=== PATIENT | female | born 1950 | race Caucasian/White ===

== ENCOUNTER 2019-05-03 09:30 | Outpatient (CLI) | payer MEDICARE | END 2019-05-03 23:59 | disposition home or self-care (01) | LOC: RAD 09:30 | DX: K21.9 Gastro-esophageal reflux disease without esophagitis (principal); Q40.3 Congenital malformation of stomach, unspecified; Z98.890 Other specified postprocedural states | CPT/HCPCS: 74240; 74248 ==

== ENCOUNTER 2020-05-17 15:57 | Emergency (ER) | payer MEDICARE ==
[~2020-05-17] VITALS: Ht 162.6 cm; Wt 69.5 kg
[2020-05-17 17:05] LABS: BASOPHILS % (AUTO) 0.3 % (0-1); EOSINOPHILS # (AUTO) 0.2 X10'3 (0-0.9); EOSINOPHILS % (AUTO) 2.9 % (0-6); HEMATOCRIT 39.2 % (35.0-45.0); HEMOGLOBIN 12.9 g/dl (12.0-16.0); LYMPHOCYTES % (AUTO) 24.6 % (21-51); MEAN CORPUSCULAR HEMOGLOBIN 30.5 PG (27.0-31.0); MEAN CORPUSCULAR HGB CONC 32.8 g/dL (33.0-36.5); MEAN PLATELET VOLUME 8.8 FL (7.4-10.4); MONOCYTES # (AUTO) 0.7 X10'3 (0-0.9); NEUTROPHILS % (AUTO) 63.2 % (42-75); PLATELET COUNT 243 X10'3 (140-440); RED BLOOD COUNT 4.22 X10'6 (4.20-5.60); RED CELL DISTRIBUTION WIDTH 13.6 % (11.5-14.5); WHITE BLOOD COUNT 7.9 X10'3 (4.5-11.0)
[2020-05-17 17:27] LABS: MAGNESIUM 1.8 MG/DL (1.5-2.4)
[2020-05-17] MEDS ORDERED: triamcinolone acetonide 40mg/ml inj IM ONE (17:55)
[2020-05-17] MEDS ORDERED: predniSONE 20 mg tablet PO ONE (18:00)
[2020-05-17] MEDS ORDERED: COLC0.6T72 PO (18:02)
[2020-05-17 18:13] VITALS: BP 147/102
== END 2020-05-17 18:18 | disposition home or self-care (01) ==
LOC: ER 15:57
DX: M10.9 Gout, unspecified (principal); G43.909 Migraine, unspecified, not intractable, without status migrainosus; J45.909 Unspecified asthma, uncomplicated; G89.29 Other chronic pain; Z90.710 Acquired absence of both cervix and uterus; Z98.890 Other specified postprocedural states; Z79.899 Other long term (current) drug therapy; Z88.2 Allergy status to sulfonamides; Z88.8 Allergy status to other drugs, medicaments and biological substances
CPT/HCPCS: 36415; 71045; 83735; 83880; 84484; 85025; 93005; 93971; 96372; 99285; J3301; J7512

== ENCOUNTER 2020-09-20 08:40 | Observation (INO) | payer MEDICARE ==
[~2020-09-20] VITALS: Ht 162.6 cm; Wt 73.6 kg
[~2020-09-20 08:40] MED LIST: COLC0.6T72 PO
[2020-09-20] MEDS ORDERED: morphine 10mg/ml inj. IM ONE (09:15)
--- NOTE | 2020-09-20 09:57 | NUR ---
informed the pharmacist [place] that pt is not allergic to morphine but allergic to dilaudid and dilaudid has component of morphine thats why its popping up that pt is allergic ,as per pharmacist if pt does not have alllergies to morphine its fine to admin the meds.
[2020-09-20] MEDS ORDERED: orphenadrine citrate 60mg/2ml inj. IM ONE (10:25)
--- NOTE | 2020-09-20 10:41 | NUR ---
notified dr contreras regarding pt pain level 6/10 after morphine ,pt unable to lift or move to get bed pain ,order for straight cath to drain urine.
[2020-09-20 10:54] LABS: CLARITY,URINE CLEAR (Clear); COLOR,URINE STRAW (Yellow); GLUCOSE, URINE NEGATIVE (Neg); KETONES,URINE NEGATIVE (Neg); LEUKOCYTE ESTERASE ,URINE NEGATIVE (Neg); NITRITES, URINE NEGATIVE (Neg); OCCULT BLOOD,URINE NEGATIVE (Neg); PROTEIN,URINE NEGATIVE (Neg); UROBILINOGEN,URINE 0.2 E.U/dL (0.2-1.0)
[2020-09-20 11:08] LABS: UA COLLECTION TYPE STRAIGHT CATH
[2020-09-20] MEDS ORDERED: ketorolac trometh. 30mg/ml inj. IM ONE (11:55)
[2020-09-20] MEDS ORDERED: HYDROcodone/acetaminophen 10/325mg tab PO ONE (11:55)
[2020-09-20] MEDS ORDERED: diazepam inj 5 MG/ML inj. IV ONE (12:40)
[2020-09-20] MEDS ORDERED: morphine 4 MG/ML inj SYRINge IV PRN (12:40)
[2020-09-20] MEDS ORDERED: GABA-530 PO (13:06)
[2020-09-20] MEDS ORDERED: PANT40TA54 PO (13:06)
[2020-09-20] MEDS ORDERED: MONT10TA32 PO (13:06)
[2020-09-20] MEDS ORDERED: ATOR10TA70 PO (13:06)
[2020-09-20] MEDS ORDERED: CYCL-1 PO (13:06)
--- NOTE | 2020-09-20 13:08 | NUR ---
dr box at bedside.
[2020-09-20] MEDS ORDERED: MULT-384 PO (13:26)
[2020-09-20] MEDS ORDERED: CHOL20004 PO (13:26)
[2020-09-20] MEDS ORDERED: INDO-12 PO (13:26)
[2020-09-20] MEDS ORDERED: BUTA-281 PO (13:26)
[2020-09-20] MEDS ORDERED: RIZA10TA98 PO (13:26)
[2020-09-20] MEDS ORDERED: CYAN-51 PO (13:26)
[2020-09-20] MEDS ORDERED: BIOT5000 PO (13:26)
[2020-09-20] MEDS ORDERED: BUPR100T7 PO (13:26)
[2020-09-20 13:32] LABS: BASOPHILS % (AUTO) 0.1 % (0-1); EOSINOPHILS # (AUTO) 0.1 X10'3 (0-0.9); EOSINOPHILS % (AUTO) 0.8 % (0-6); HEMATOCRIT 40.6 % (35.0-45.0); HEMOGLOBIN 13.5 g/dl (12.0-16.0); LYMPHOCYTES # (AUTO) 1.4 X10'3 (1.1-4.8); LYMPHOCYTES % (AUTO) 15.4 % (21-51); MEAN CORPUSCULAR HEMOGLOBIN 30.6 PG (27.0-31.0); MEAN CORPUSCULAR HGB CONC 33.3 g/dL (33.0-36.5); MEAN CORPUSCULAR VOLUME 91.9 FL (78-98); MEAN PLATELET VOLUME 8.7 FL (7.4-10.4); MONOCYTES # (AUTO) 0.8 X10'3 (0-0.9); MONOCYTES % (AUTO) 8.6 % (2-12); NEUTROPHILS # (AUTO) 6.8 X10'3 (1.8-7.7); NEUTROPHILS % (AUTO) 75.1 % (42-75); PLATELET COUNT 254 X10'3 (140-440); RED BLOOD COUNT 4.42 X10'6 (4.20-5.60); RED CELL DISTRIBUTION WIDTH 14.1 % (11.5-14.5)
[2020-09-20] MEDS ORDERED: potassium Cl 20 mEq SR tablet PO PRN ×2 (13:35)
[2020-09-20] MEDS ORDERED: bisacodyl 10mg suppository rectal RC PRN (13:35)
[2020-09-20] MEDS ORDERED: mag hydrox/Alum hydrox/simeth 30ml oral suspension PO PRN (13:35)
[2020-09-20] MEDS ORDERED: magnesium 2GM in 50ml NS 50 ML IV PRN (13:35)
[2020-09-20] MEDS ORDERED: morphine 2 MG/ML inj. syringe IV PRN (13:35)
[2020-09-20] MEDS ORDERED: ketorolac trometh. 30mg/ml inj. IV PRN (13:35)
[2020-09-20] MEDS ORDERED: acetaminophen 325mg tablet PO PRN ×2 (13:35)
[2020-09-20] MEDS ORDERED: magnesium hydroxide 30ml (MOM) UD suspension PO PRN (13:35)
[2020-09-20] MEDS ORDERED: magnesium Cl slow-release 64mg tablet PO PRN (13:35)
[2020-09-20] MEDS ORDERED: HYDROcodone/acetaminophen 10/325mg tab PO PRN (13:35)
[2020-09-20] MEDS ORDERED: potassium Cl 40MEQ/1/2NS 520ml 520 ML IV PRN ×2 (13:35)
[2020-09-20] MEDS ORDERED: magnesium 4gm in 100ml NS 100 ML IV PRN (13:35)
[2020-09-20] MEDS ORDERED: cyclobenzaprine 10mg tablet PO PRN (13:35)
[2020-09-20] MEDS ORDERED: ondansetron/PF 4mg/2ml inj IV PRN (13:35)
[2020-09-20 13:39] LABS: ALANINE AMINOTRANSFERASE 34 U/L (12-78); ALBUMIN 3.6 G/DL (3.4-5.0); ALBUMIN/GLOBULIN RATIO 0.9 (1.1-1.5); ALKALINE PHOSPHATASE 117 IU/L (46-116); ANION GAP 8 (8-16); ASPARTATE AMINO TRANSFERASE 26 U/L (10-37); BILIRUBIN,TOTAL 0.3 MG/DL (0.1-1.0); BLOOD UREA NITROGEN 22 MG/DL (7-18); BUN/CREATININE RATIO 20.2 (6.6-38.0); CHLORIDE 109 MMOL/L (99-107); CREATININE 1.09 MG/DL (0.40-0.90); GLUCOSE 102 MG/DL (70-104); POTASSIUM 3.8 MMOL/L (3.5-5.1); SODIUM 146 MMOL/L (135-145); TOTAL CARBON DIOXIDE 29.1 MMOL/L (24-32); TOTAL PROTEIN 7.4 G/DL (6.4-8.2); eGFR 50 ML/MIN
[2020-09-20] MEDS: normal saline 1000ml 1,000 ML IV SCH (14:24)
[2020-09-20] MEDS ORDERED: normal saline 1000ml 1,000 ML IV ONE (16:00)
--- NOTE | 2020-09-20 16:03 | NUR ---
dr contreras came it nurses station staed that pt looks dry on lab give her normal saline 250 ml bolus.followed the orders.
[2020-09-20] MEDS: docusate sod 100mg capsule PO SCH (20:00)
[2020-09-20] MEDS: K and/or MAG REPLACEMENT MC SCH (20:00)
[2020-09-20] MEDS: montelukast 10mg tablet PO SCH (20:21)
[2020-09-20] MEDS: gabapentin 300mg capsule PO SCH (20:21)
[2020-09-20] MEDS: pantoprazole 40mg Tablet.DR PO SCH (20:21)
[2020-09-20] MEDS: methyl salicylate/menthol cream 57gm TP SCH (20:25)
[2020-09-20] MEDS ORDERED: temazepam 15mg capsule PO PRN (21:00)
--- NOTE | 2020-09-21 01:09 | NUR ---
pt requested fc r/t immobilization, so done.
[2020-09-21] MEDS: normal saline 1000ml 1,000 ML IV SCH ×2 (04:02→13:42)
[2020-09-21 04:38] LABS: HEMATOCRIT 37.1 % (35.0-45.0); HEMOGLOBIN 12.3 g/dl (12.0-16.0); MEAN CORPUSCULAR HEMOGLOBIN 30.6 PG (27.0-31.0); MEAN CORPUSCULAR HGB CONC 33.2 g/dL (33.0-36.5); MEAN CORPUSCULAR VOLUME 92.2 FL (78-98); MEAN PLATELET VOLUME 8.5 FL (7.4-10.4); PLATELET COUNT 221 X10'3 (140-440); RED BLOOD COUNT 4.02 X10'6 (4.20-5.60); RED CELL DISTRIBUTION WIDTH 14.7 % (11.5-14.5); WHITE BLOOD COUNT 7.1 X10'3 (4.5-11.0)
[2020-09-21 04:48] LABS: ALBUMIN 2.9 G/DL (3.4-5.0); ANION GAP 10 (8-16); BLOOD UREA NITROGEN 27 MG/DL (7-18); BUN/CREATININE RATIO 23.7 (6.6-38.0); CALCIUM 8.5 MG/DL (8.5-10.1); CHLORIDE 110 MMOL/L (99-107); CREATININE 1.14 MG/DL (0.40-0.90); GLUCOSE 113 MG/DL (70-104); MAGNESIUM 1.7 MG/DL (1.5-2.4); POTASSIUM 3.9 MMOL/L (3.5-5.1); SODIUM 145 MMOL/L (135-145); eGFR 47 ML/MIN
[2020-09-21] MEDS: K and/or MAG REPLACEMENT MC SCH ×2 (06:39→21:41)
--- NOTE | 2020-09-21 07:05 | NUR ---
Report received from ED RN, Ania
[2020-09-21 07:40] VITALS: BP 121/78
[2020-09-21] MEDS: docusate sod 100mg capsule PO SCH ×2 (08:00→21:42)
[2020-09-21] MEDS ORDERED: morphine 2 MG/ML inj. syringe IV PRN (08:40)
[2020-09-21] MEDS: atorvastatin 10mg tablet PO SCH (10:15)
[2020-09-21] MEDS: diazepam 5mg tablet PO PRN ×3 (10:16→23:49)
[2020-09-21] MEDS: pantoprazole 40mg Tablet.DR PO SCH ×2 (10:16→21:42)
[2020-09-21] MEDS: methyl salicylate/menthol cream 57gm TP SCH (10:17)
[2020-09-21] MEDS: buPROPion SR 100mg tab PO SCH (10:17)
[2020-09-21 11:00] VITALS: BP 141/57
[2020-09-21] MEDS ORDERED: oxyCODONE/APAP 5-325mg tablet PO PRN (13:45)
[2020-09-21] MEDS: oxyCODONE/APAP 10/325mg tablet PO PRN ×2 (13:56→17:52)
[2020-09-21 18:00] VITALS: BP 153/86
--- NOTE | 2020-09-21 18:10 | NUR ---
Problems reprioritized. Patient report given, questions answered & plan of care reviewed with Alexandria RN.
[2020-09-21] MEDS ORDERED: enoxaparin 40mg/0.4ml syringe SUBCUT SCH (20:00)
[2020-09-21] MEDS: montelukast 10mg tablet PO SCH (21:42)
[2020-09-21] MEDS: gabapentin 300mg capsule PO SCH (21:43)
[2020-09-21 23:45] VITALS: BP 166/81
[2020-09-22] MEDS: normal saline 1000ml 1,000 ML IV SCH (03:04)
[2020-09-22] MEDS: oxyCODONE/APAP 10/325mg tablet PO PRN ×2 (03:14→11:56)
[2020-09-22 05:37] LABS: ALBUMIN 2.7 G/DL (3.4-5.0); ANION GAP 11 (8-16); BLOOD UREA NITROGEN 15 MG/DL (7-18); BUN/CREATININE RATIO 18.3 (6.6-38.0); CALCIUM 7.8 MG/DL (8.5-10.1); CHLORIDE 107 MMOL/L (99-107); CREATININE 0.82 MG/DL (0.40-0.90); GLUCOSE 94 MG/DL (70-104); HEMATOCRIT 37.4 % (35.0-45.0); HEMOGLOBIN 12.5 g/dl (12.0-16.0); MAGNESIUM 1.6 MG/DL (1.5-2.4); MEAN CORPUSCULAR HEMOGLOBIN 30.7 PG (27.0-31.0); MEAN CORPUSCULAR HGB CONC 33.5 g/dL (33.0-36.5); MEAN CORPUSCULAR VOLUME 91.6 FL (78-98); MEAN PLATELET VOLUME 9.1 FL (7.4-10.4); PLATELET COUNT 220 X10'3 (140-440); POTASSIUM 3.4 MMOL/L (3.5-5.1); RED BLOOD COUNT 4.09 X10'6 (4.20-5.60); RED CELL DISTRIBUTION WIDTH 14.1 % (11.5-14.5); SODIUM 143 MMOL/L (135-145); TOTAL CARBON DIOXIDE 25.4 MMOL/L (24-32); WHITE BLOOD COUNT 7.5 X10'3 (4.5-11.0); eGFR 69 ML/MIN
--- NOTE | 2020-09-22 06:15 | NUR ---
Patient in room [facility]. I have received report from OLEG Ibrahim and had the opportunity to ask questions and assume patient care.
[2020-09-22 06:30] VITALS: BP 161/53
[2020-09-22] MEDS: K and/or MAG REPLACEMENT MC SCH (07:03)
[2020-09-22] MEDS: docusate sod 100mg capsule PO SCH (07:41)
[2020-09-22] MEDS: atorvastatin 10mg tablet PO SCH (07:42)
[2020-09-22] MEDS: pantoprazole 40mg Tablet.DR PO SCH (07:42)
[2020-09-22] MEDS: diazepam 5mg tablet PO PRN (07:45)
[2020-09-22] MEDS: buPROPion SR 100mg tab PO SCH (07:45)
[2020-09-22] MEDS ORDERED: OXYC1TAB17 PO (10:04)
[2020-09-22] MEDS ORDERED: DIAZ-351 PO (10:04)
[2020-09-22 11:00] VITALS: BP 148/75
--- NOTE | 2020-09-22 12:35 | NUR ---
DC inst provided to pt & pt's . IV DC'd, tip intact. All belongings sent w/pt. WC to vehicle.
== END 2020-09-22 12:35 | disposition home or self-care (01) ==
LOC: ER 08:40 → ED HOLD 13:40 → SUR 3N 09-21 07:10
PROVIDERS: ADMIT Family Medicine; ATTEND Family Medicine
DX: S30.0XXA Contusion of lower back and pelvis, initial encounter (principal); M62.830 Muscle spasm of back; M54.6 Pain in thoracic spine; E87.6 Hypokalemia; G43.909 Migraine, unspecified, not intractable, without status migrainosus; J45.909 Unspecified asthma, uncomplicated; G89.29 Other chronic pain; G62.9 Polyneuropathy, unspecified; K21.9 Gastro-esophageal reflux disease without esophagitis; G47.30 Sleep apnea, unspecified; E78.5 Hyperlipidemia, unspecified; F32.9 Major depressive disorder, single episode, unspecified; Z88.5 Allergy status to narcotic agent; Z90.710 Acquired absence of both cervix and uterus; Z88.8 Allergy status to other drugs, medicaments and biological substances; Z90.89 Acquired absence of other organs; Z79.899 Other long term (current) drug therapy; W01.0XXA Fall on same level from slipping, tripping and stumbling without subsequent striking against object, initial encounter; Y93.89 Activity, other specified; Y92.89 Other specified places as the place of occurrence of the external cause; Y99.8 Other external cause status
CPT/HCPCS: 36415; 72070; 72100; 80048; 80053; 81003; 83735; 85025; 85027; 87081; 96361; 96372; 96374; 96375; 97110; 97161; 97530; 99284; G0378; J1885; J2270; J2360; J3360; J7030; J1650

== ENCOUNTER 2021-04-13 17:13 | Emergency (ER) | payer MEDICARE ==
[~2021-04-13] VITALS: Ht 162.6 cm; Wt 74.5 kg
[~2021-04-13 17:13] MED LIST changes: +ATOR10TA70 PO; +BIOT5000 PO; +BUPR100T7 PO; +BUTA-281 PO; +CHOL20004 PO; -COLC0.6T72 PO; +CYAN-51 PO; +CYCL-1 PO; +DIAZ-351 PO; +GABA-530 PO; +MONT-40 PO; +MULT-384 PO; +OXYC1TAB17 PO; +PANT40TA54 PO; +RIZA10TA98 PO
[2021-04-13 17:48] LABS: BASOPHILS % (AUTO) 0.2 % (0-1); EOSINOPHILS # (AUTO) 0.1 X10'3 (0-0.9); EOSINOPHILS % (AUTO) 1.6 % (0-6); HEMATOCRIT 45.8 % (35.0-45.0); HEMOGLOBIN 15.6 g/dl (12.0-16.0); LYMPHOCYTES # (AUTO) 1.5 X10'3 (1.1-4.8); LYMPHOCYTES % (AUTO) 17.9 % (21-51); MEAN CORPUSCULAR HEMOGLOBIN 31.3 PG (27.0-31.0); MEAN CORPUSCULAR VOLUME 91.9 FL (78-98); MEAN PLATELET VOLUME 8.9 FL (7.4-10.4); MONOCYTES # (AUTO) 0.6 X10'3 (0-0.9); MONOCYTES % (AUTO) 7.1 % (2-12); NEUTROPHILS # (AUTO) 6.1 X10'3 (1.8-7.7); NEUTROPHILS % (AUTO) 73.2 % (42-75); PLATELET COUNT 282 X10'3 (140-440); RED BLOOD COUNT 4.98 X10'6 (4.20-5.60); WHITE BLOOD COUNT 8.3 X10'3 (4.5-11.0)
[2021-04-13 18:01] LABS: ALANINE AMINOTRANSFERASE 33 U/L (12-78); ALBUMIN 3.7 G/DL (3.4-5.0); ALBUMIN/GLOBULIN RATIO 0.9 (1.1-1.5); ALKALINE PHOSPHATASE 166 IU/L (46-116); ANION GAP 7 (8-16); ASPARTATE AMINO TRANSFERASE 40 U/L (10-37); BILIRUBIN,TOTAL 0.2 MG/DL (0.1-1.0); BLOOD UREA NITROGEN 20 MG/DL (7-18); BUN/CREATININE RATIO 18.7 (6.6-38.0); CALCIUM 9.2 MG/DL (8.5-10.1); CHLORIDE 104 MMOL/L (99-107); CREATININE 1.07 MG/DL (0.40-0.90); GLUCOSE 120 MG/DL (70-104); POTASSIUM 3.7 MMOL/L (3.5-5.1); SODIUM 141 MMOL/L (135-145); TOTAL CARBON DIOXIDE 29.6 MMOL/L (24-32); eGFR 51 ML/MIN
--- NOTE | 2021-04-13 20:57 | NUR ---
at bed side
--- NOTE | 2021-04-13 21:03 | NUR ---
Dr. Garza made aware of patient report of chest pain and nausea
[2021-04-13] MEDS ORDERED: LIDOcaine Viscous 15ml cup MM ONE (21:15)
[2021-04-13] MEDS ORDERED: mag hydrox/Alum hydrox/simeth 30ml oral suspension PO ONE (21:15)
[2021-04-13] MEDS ORDERED: aspirin 325mg tablet PO ONE (22:00)
[2021-04-13 22:26] VITALS: BP 152/92
== END 2021-04-13 22:32 | disposition home or self-care (01) ==
LOC: ER 17:15
DX: R07.89 Other chest pain (principal); Z20.822 Contact with and (suspected) exposure to COVID-19; K21.9 Gastro-esophageal reflux disease without esophagitis; R11.0 Nausea; G43.909 Migraine, unspecified, not intractable, without status migrainosus; I10 Essential (primary) hypertension; J45.909 Unspecified asthma, uncomplicated; G89.29 Other chronic pain; M10.9 Gout, unspecified; F17.200 Nicotine dependence, unspecified, uncomplicated; Z90.710 Acquired absence of both cervix and uterus; Z98.890 Other specified postprocedural states; Z88.8 Allergy status to other drugs, medicaments and biological substances; Z88.1 Allergy status to other antibiotic agents; Z79.899 Other long term (current) drug therapy
CPT/HCPCS: 36415; 71046; 80053; 83880; 84484; 85025; 87635; 93005; 99285; C9803

== ENCOUNTER 2021-04-26 08:29 | Emergency (ER) | payer MEDICARE ==
[~2021-04-26] VITALS: Ht 165.1 cm; Wt 74.8 kg
[2021-04-26 09:43] LABS: BASOPHILS % (AUTO) 0.4 % (0-1); EOSINOPHILS # (AUTO) 0.2 X10'3 (0-0.9); EOSINOPHILS % (AUTO) 3.5 % (0-6); HEMATOCRIT 46.5 % (35.0-45.0); HEMOGLOBIN 15.1 g/dl (12.0-16.0); LYMPHOCYTES # (AUTO) 1.8 X10'3 (1.1-4.8); LYMPHOCYTES % (AUTO) 25.9 % (21-51); MEAN CORPUSCULAR HEMOGLOBIN 30.8 PG (27.0-31.0); MEAN CORPUSCULAR HGB CONC 32.5 g/dL (33.0-36.5); MEAN CORPUSCULAR VOLUME 94.7 FL (78-98); MEAN PLATELET VOLUME 8.8 FL (7.4-10.4); MONOCYTES # (AUTO) 0.6 X10'3 (0-0.9); NEUTROPHILS # (AUTO) 4.3 X10'3 (1.8-7.7); NEUTROPHILS % (AUTO) 62.2 % (42-75); PLATELET COUNT 217 X10'3 (140-440); RED BLOOD COUNT 4.91 X10'6 (4.20-5.60); RED CELL DISTRIBUTION WIDTH 14.3 % (11.5-14.5); WHITE BLOOD COUNT 6.9 X10'3 (4.5-11.0)
[2021-04-26 10:01] LABS: ALANINE AMINOTRANSFERASE 28 U/L (12-78); ALBUMIN 3.4 G/DL (3.4-5.0); ALBUMIN/GLOBULIN RATIO 0.8 (1.1-1.5); ALKALINE PHOSPHATASE 122 IU/L (46-116); ANION GAP 9 (8-16); ASPARTATE AMINO TRANSFERASE 16 U/L (10-37); BILIRUBIN,TOTAL 0.3 MG/DL (0.1-1.0); BLOOD UREA NITROGEN 17 MG/DL (7-18); BUN/CREATININE RATIO 18.1 (6.6-38.0); CALCIUM 9.3 MG/DL (8.5-10.1); CHLORIDE 106 MMOL/L (99-107); CREATININE 0.94 MG/DL (0.40-0.90); GLUCOSE 88 MG/DL (70-104); POTASSIUM 3.8 MMOL/L (3.5-5.1); SODIUM 146 MMOL/L (135-145); TOTAL CARBON DIOXIDE 30.8 MMOL/L (24-32); TOTAL PROTEIN 7.5 G/DL (6.4-8.2); eGFR 59 ML/MIN
[2021-04-26] MEDS ORDERED: LOSA25TA96 PO (10:01)
[2021-04-26 11:26] LABS: D-DIMER 0.61 MG/L FEU (0-0.50)
[2021-04-26 12:04] VITALS: BP 158/83
== END 2021-04-26 12:07 | disposition home or self-care (01) ==
LOC: ER 08:29
DX: R07.89 Other chest pain (principal); R05.9 Cough, unspecified; I10 Essential (primary) hypertension; G43.909 Migraine, unspecified, not intractable, without status migrainosus; G62.9 Polyneuropathy, unspecified; J45.909 Unspecified asthma, uncomplicated; K21.9 Gastro-esophageal reflux disease without esophagitis; G89.29 Other chronic pain; M10.9 Gout, unspecified; Z90.710 Acquired absence of both cervix and uterus; Z98.890 Other specified postprocedural states; Z88.8 Allergy status to other drugs, medicaments and biological substances; Z88.1 Allergy status to other antibiotic agents; Z79.899 Other long term (current) drug therapy
CPT/HCPCS: 36415; 71045; 80053; 83880; 84484; 85025; 85379; 93005; 99285

== ENCOUNTER 2024-03-08 17:35 | Emergency (ER) | payer MEDICARE ==
[~2024-03-08] VITALS: Ht 162.6 cm; Wt 74.3 kg
[~2024-03-08 17:35] MED LIST changes: -BIOT5000 PO; -BUPR100T7 PO; -BUTA-281 PO; +CYAN-104 PO; -CYAN-51 PO; -CYCL-1 PO; -DIAZ-351 PO; +LOSA50TA64 PO; -MONT-40 PO; +MONT-48 PO; -OXYC1TAB17 PO; -RIZA10TA98 PO
[2024-03-08 17:42] VITALS: TEMP 98
[2024-03-08] MEDS ORDERED: LIDOcaine 5% patch TP SCH (20:10)
[2024-03-08] MEDS ORDERED: TRAM50TA2 PO (20:57)
[2024-03-08] MEDS ORDERED: CYCL-1 PO (20:57)
[2024-03-08] MEDS ORDERED: LIDO700A32 TD (20:57)
[2024-03-08] MEDS: diazepam 5mg tablet PO ONE (21:21)
[2024-03-08] MEDS: LIDOcaine 5% patch TP ONE (21:22)
[2024-03-08 21:31] VITALS: BP 154/67; PULSE 63; RESP 16; O2SAT 98
== END 2024-03-08 21:33 | disposition home or self-care (01) ==
LOC: ER 17:36
DX: S63.501A Unspecified sprain of right wrist, initial encounter (principal); S20.212A Contusion of left front wall of thorax, initial encounter; S50.02XA Contusion of left elbow, initial encounter; G43.909 Migraine, unspecified, not intractable, without status migrainosus; G62.9 Polyneuropathy, unspecified; I10 Essential (primary) hypertension; J45.909 Unspecified asthma, uncomplicated; K21.9 Gastro-esophageal reflux disease without esophagitis; Z88.5 Allergy status to narcotic agent; Z88.1 Allergy status to other antibiotic agents; Z88.8 Allergy status to other drugs, medicaments and biological substances; Z90.710 Acquired absence of both cervix and uterus; Z98.890 Other specified postprocedural states; W18.39XA Other fall on same level, initial encounter; Y93.89 Activity, other specified; Y92.89 Other specified places as the place of occurrence of the external cause; Y99.8 Other external cause status
CPT/HCPCS: 71045; 73110; 99284